=== PATIENT | female | born 2000 | race Caucasian/White ===

== ENCOUNTER 2020-04-18 15:14 | Outpatient (CLI) | payer OTHER ==
[~2020-04-18] VITALS: Ht 157.5 cm; Wt 56.8 kg
[2020-04-18] VITALS (9 sets, daily range): BP systolic 97–118; BP diastolic 55–79; PULSE 16–96; TEMP 98.4
--- NOTE | 2020-04-18 14:45 | NUR ---
1445-Patient to unit via ambulance. Patient experienced vaginal bleeding into toilet at 1400 and called 911. Denies complications of . Reports 26.3 weeks and doctors at [facility]. ANISHA C//HSonia GREEN. No fluid or bleeding noted on exam. Patient very tearful and shaking. Provided warm blanket and emotional support. Significant other Delon at bedside. Denies taking any medications. R sada. Updated on plan of care and notified MD. See physician notification.
[~2020-04-18 15:14] MED LIST: NO HOME MEDICATIONS; SEPTRA SUS200/5-40/5 PO
--- NOTE | 2020-04-18 15:35 | NUR ---
[facility].
[2020-04-18 15:55] LABS: TRICYCLIC ANTIDEPRESS URINE NEGATIVE
[2020-04-18 16:32] LABS: MEAN CELL VOLUME 96 fl (80.0-95.0); MEAN CORPUSCULAR HGB CONC 34 g/dl (33.0-37.0); MEAN PLATELET VOLUME 9.1 fl (7.4-10.4); PLATELET COUNT 259 K/mm3 (130-400); RED BLOOD COUNT 2.72 M/mm3 (4.10-5.30); REDCELL DISTRIBUTION WIDTH-CV 12.6 % (11.5-14.5)
[2020-04-18 16:37] LABS: HEMATOCRIT 26.1 % (35.0-45.0); HEMOGLOBIN 8.8 g/dl (12.0-15.0); MEAN CORPUSCULAR HEMOGLOBIN 32 pg (26.0-32.0)
[2020-04-18] MEDS ORDERED: ASPIRIN 81M81 MG/TA2 PO (17:02)
[2020-04-18] MEDS ORDERED: PRENATAL (17:02)
[2020-04-18 17:27] LABS: COLLECTION METHOD CLEAN CATCH
[2020-04-18 17:33] LABS: MUCOUS Present /lpf; PH 7 (5-8); SQUAMOUS EPITHELIAL 0-2 /hpf; URINE APPEARANCE Hazy; URINE BACTERIA Rare /hpf; URINE BILIRUBIN Negative (NEGATIVE); URINE BLOOD Negative (NEGATIVE); URINE COLOR Yellow; URINE GLUCOSE Negative (NEGATIVE); URINE KETONE Negative (NEGATIVE); URINE LEUKOCYTE ESTERASE Trace (NEGATIVE); URINE NITRATE Negative (NEGATIVE); URINE PROTEIN(semi-quant) Negative (NEGATIVE); URINE RBC 0-2 /hpf; URINE UROBILINOGEN Negative (NEGATIVE); URINE WBC 0-2 /hpf
--- NOTE | 2020-04-18 18:00 | NUR ---
1800-Patient reports "feeling better" at this time. Denies any further bleeding, Acitve baby audible on EFM. Patient reports feeling this movement. Kendra pad dry.
== END 2020-04-18 19:20 | disposition home or self-care (01) ==
LOC: EDBD 15:14 → LDRO 15:14
PROVIDERS: Obstetrics & Gynecology
DX: O26.852 Spotting complicating pregnancy, second trimester (principal); Z3A.26 26 weeks gestation of pregnancy